=== PATIENT | female | born 1960 | race Hispanic/Latino ===

== ENCOUNTER 2022-03-05 01:31 | Inpatient (IN) | payer OTHER ==
[~2022-03-05] VITALS: Ht 149.9 cm; Wt 38.8 kg
[~2022-03-05 01:31] MED LIST: CYAN-52 PO; FERR324T4 PO; FOLI1 PO; HYDR-3421 PO; PANT40TA PO; RISP0.5T66 PO; RISP1TAB89 PO
[2022-03-05 01:58] LABS: BASOPHILS % (AUTO) 0.6 % (0.0-5.0); EOSINOPHILS % (AUTO) 1.9 % (0.0-8.0); LYMPHOCYTES % (AUTO) 16.6 % (21.0-51.0); MEAN CORPUSCULAR HEMOGLOBIN 26.8 pg (27.0-33.0); MEAN CORPUSCULAR HGB CONC 31.7 g/dL (32.0-36.0); MEAN CORPUSCULAR VOLUME 84.5 fL (79-99); MONOCYTES % (AUTO) 11.7 % (3.0-13.0); NEUTROPHILS % (AUTO) 68.9 % (40.0-77.0); PLATELET COUNT (AUTO) 234 K/uL (130-400); RED BLOOD CELL COUNT(AUTO) 2.84 MIL/uL (4.00-5.50); RED CELL DISTRIBUTION WIDTH 16.9 % (11.0-15.5); WHITE BLOOD COUNT (AUTO) 7.2 K/uL (4.8-10.8)
[2022-03-05] MEDS ORDERED: ONDANSETRON 4MG INJ IVP ONE (02:00)
[2022-03-05] MEDS ORDERED: 0.9%NACL 1000ML 1,000 ML IV ONE (02:00)
[2022-03-05 02:10] LABS: CREATININE 1.3 mg/dL (0.5-1.5); POTASSIUM 3.8 mmol/L (3.5-5.1)
[2022-03-05 02:15] LABS: ALBUMIN 2.8 g/dL (3.5-5.0); TOTAL PROTEIN, SERUM 6.9 g/dL (6.0-8.3)
[2022-03-05 03:20] LABS: BASOPHILS % (AUTO) 0.7 % (0.0-5.0); EOSINOPHILS % (AUTO) 2.3 % (0.0-8.0); HEMATOCRIT 24.1 % (36-48); LYMPHOCYTES % (AUTO) 17.1 % (21.0-51.0); MEAN CORPUSCULAR HEMOGLOBIN 26.4 pg (27.0-33.0); MEAN CORPUSCULAR HGB CONC 31.1 g/dL (32.0-36.0); MEAN CORPUSCULAR VOLUME 84.9 fL (79-99); MONOCYTES % (AUTO) 12.1 % (3.0-13.0); NEUTROPHILS % (AUTO) 67.4 % (40.0-77.0); PLATELET COUNT (AUTO) 210 K/uL (130-400); RED BLOOD CELL COUNT(AUTO) 2.84 MIL/uL (4.00-5.50); RED CELL DISTRIBUTION WIDTH 16.9 % (11.0-15.5); WHITE BLOOD COUNT (AUTO) 6.9 K/uL (4.8-10.8)
[2022-03-05 03:25] LABS: CARBON DIOXIDE 33 mmol/L (21-32); CHLORIDE 103 mmol/L (101-111); CREATININE 1.2 mg/dL (0.5-1.5); GLOMERULAR FILTR. RATE CALC 48 mL/min (>60); GLUCOSE,RANDOM 98 mg/dL (70-105); POTASSIUM 3.9 mmol/L (3.5-5.1); SODIUM SERUM 142 mmol/L (136-145); UREA NITROGEN, BLOOD 23 mg/dL (7-18)
[2022-03-05 03:30] LABS: ALANINE AMINOTRANSFERASE 12 U/L (12-78); ALBUMIN 2.9 g/dL (3.5-5.0); ALCOHOL, BLOOD < 3 mg/dL (0-10); AMMONIA 13 umol/L (11-32); ASPARTATE AMINOTRANSFERASE 19 U/L (10-37); TOTAL PROTEIN, SERUM 7.1 g/dL (6.0-8.3)
[2022-03-05 04:01] LABS: APPEARANCE,URINE CLEAR (CLEAR); BILIRUBIN,URINE NEGATIVE (NEGATIVE); COLOR,URINE YELLOW (YELLOW); GLUCOSE, URINE (UA) NEGATIVE (NEGATIVE); KETONES,URINE NEGATIVE (NEGATIVE); LEUKOCYTE ESTERASE ,URINE NEGATIVE Leu/uL (NEGATIVE); NITRATE,URINE NEGATIVE (NEGATIVE); OCCULT BLOOD,URINE NEGATIVE (NEGATIVE); PH,URINE 5.5 (5.0-8.0); PROTEIN,URINE 30 mg/dL (NEGATIVE); UROBILINOGEN,URINE 0.2 mg/dL (0.2-1.0)
[2022-03-05 04:07] LABS: MUCUS,URINE RARE LPF (None Seen); SQUAMOUS EPITHELIAL CELL,UR RARE /HPF (0-2)
[2022-03-05] MEDS ORDERED: LIDOCAINE HCL-MPF 1% 2ML VIAL IV PRN (05:30)
[2022-03-05] MEDS ORDERED: DiphenhydrAMINE HCL 50 MG/ML VIAL IV PRN (05:30)
[2022-03-05] MEDS ORDERED: POTASSIUM CHLORIDE 20MEQ/100ML 100 ML IV PRN (05:30)
[2022-03-05] MEDS ORDERED: ACETAMINOPHEN 325 MG TAB PO PRN (05:30)
[2022-03-05] MEDS ORDERED: MAGNESIUM 2GM PREMIX 50ML 50 ML IV PRN (05:30)
[2022-03-05] MEDS ORDERED: KCL 20 MEQ ERTAB PO PRN (05:30)
[2022-03-05] MEDS: LACTATED RINGERS 1000ML 1,000 ML IV SCH ×2 (06:20→21:04)
[2022-03-05 06:23] LABS: BARBITURATE SCREEN, URINE NEGATIVE (NEGATIVE)
[2022-03-05 06:24] LABS: AMPHET/METH SCREEN,URINE NEGATIVE (NEGATIVE); BENZODIAZEPINES SCREEN,URINE NEGATIVE (NEGATIVE); CANNABINOID SCREEN,URINE NEGATIVE (NEGATIVE); COCAINE SCREEN,URINE NEGATIVE (NEGATIVE); PHENCYCLIDINE SCREEN,URINE NEGATIVE (NEGATIVE)
[2022-03-05 08:41] LABS: HEMOGLOBIN A1C 6.2 % (4.0-6.0)
[2022-03-05] MEDS: FERROUS SULFATE 325 MG TABLET.DR PO SCH (08:41)
[2022-03-05] MEDS: CALCIUM CARB 500MG PO SCH ×2 (08:41→20:48)
[2022-03-05] MEDS: FAMOTIDINE 20MG TAB PO SCH (08:41)
[2022-03-05] MEDS ORDERED: HEPARIN 5,000 UNIT VIAL SQ SCH (09:00)
[2022-03-05 09:14] LABS: CRP QUANTITATIVE 5.4 mg/L (0.00-9.0); THYROID STIMULATING HORMONE 1.32 uIU/mL (0.36-3.74)
[2022-03-05 09:30] VITALS: BP 138/74
[2022-03-05] MEDS ORDERED: THIAMINE HCL 100 MG/ML 2ML VIAL IVP SCH (10:30)
[2022-03-05] MEDS ORDERED: FOLIC ACID 5 MG/ML VIAL IV SCH (10:30)
[2022-03-05] MEDS: ONDANSETRON 4MG INJ IV PRN (11:50)
[2022-03-05 12:00] VITALS: BP 135/76
[2022-03-05 16:00] VITALS: BP 124/82
[2022-03-05] MEDS ORDERED: BISACODYL 10 MG SUPP.RECT RC PRN (16:30)
[2022-03-05] MEDS: POLYETHYLENE GLYCOL 3350 17 GM POWD.PACK PO ONE ×2 (17:49→18:28)
[2022-03-05 19:00] VITALS: BP 122/76
[2022-03-05] MEDS: DOCUSATE SODIUM 100 MG CAP PO SCH (20:48)
[2022-03-06] VITALS: BP 128/85
[2022-03-06 04:00] VITALS: BP 148/70
[2022-03-06 04:17] LABS: BASOPHILS % (AUTO) 1.2 % (0.0-5.0); EOSINOPHILS % (AUTO) 5.1 % (0.0-8.0); HEMATOCRIT 25.2 % (36-48); LYMPHOCYTES % (AUTO) 19.4 % (21.0-51.0); MEAN CORPUSCULAR HEMOGLOBIN 26.1 pg (27.0-33.0); MEAN CORPUSCULAR HGB CONC 30.6 g/dL (32.0-36.0); MEAN CORPUSCULAR VOLUME 85.4 fL (79-99); MONOCYTES % (AUTO) 11.9 % (3.0-13.0); NEUTROPHILS % (AUTO) 62.2 % (40.0-77.0); PLATELET COUNT (AUTO) 182 K/uL (130-400); RED BLOOD CELL COUNT(AUTO) 2.95 MIL/uL (4.00-5.50); RED CELL DISTRIBUTION WIDTH 16.4 % (11.0-15.5); WHITE BLOOD COUNT (AUTO) 4.9 K/uL (4.8-10.8)
[2022-03-06 04:44] LABS: CREATININE 0.8 mg/dL (0.5-1.5); MAGNESIUM 1.7 mg/dL (1.80-2.40); PHOSPHORUS 5.2 mg/dL (2.5-4.9); POTASSIUM 3.9 mmol/L (3.5-5.1)
[2022-03-06] MEDS: DOXYCYCLINE HYCLATE 100 MG TABLET PO SCH ×2 (05:20→17:17)
[2022-03-06] MEDS: CEFTRIAXONE 1G VIAL IVP SCH (05:20)
[2022-03-06] MEDS: 0.9%NACL 1000ML 1,000 ML IV SCH ×2 (05:20→20:20)
[2022-03-06] MEDS ORDERED: MAGNESIUM 2GM PREMIX 50ML 50 ML IV PRN (05:30)
[2022-03-06 08:00] VITALS: BP 125/81
[2022-03-06] MEDS: FERROUS SULFATE 325 MG TABLET.DR PO SCH (09:19)
[2022-03-06] MEDS: DOCUSATE SODIUM 100 MG CAP PO SCH ×2 (09:19→20:19)
[2022-03-06] MEDS: FAMOTIDINE 20MG TAB PO SCH (09:19)
[2022-03-06] MEDS: CALCIUM CARB 500MG PO SCH ×2 (09:19→20:19)
[2022-03-06] MEDS: ONDANSETRON 4MG INJ IV PRN (10:09)
[2022-03-06 12:00] VITALS: BP 156/79
[2022-03-06 16:00] VITALS: BP 148/96
[2022-03-06] MEDS ORDERED: LACTULOSE 20 GM/30 ML UDCUP PO PRN (18:00)
[2022-03-06] MEDS ORDERED: SODIUM CHLORIDE 3% FOR INHALATION 4 ML/AMP VIAL.NEB IH ONE ×2 (18:28→23:23)
[2022-03-06 20:05] VITALS: BP 129/77
[2022-03-07] VITALS: BP 132/78
[2022-03-07 04:17] VITALS: BP 147/84
[2022-03-07] MEDS: DOXYCYCLINE HYCLATE 100 MG TABLET PO SCH ×2 (04:38→16:42)
[2022-03-07] MEDS: CEFTRIAXONE 1G VIAL IVP SCH (04:38)
[2022-03-07] MEDS: 0.9%NACL 1000ML 1,000 ML IV SCH (04:38)
[2022-03-07 06:01] LABS: BASOPHILS % (AUTO) 0.8 % (0.0-5.0); HEMATOCRIT 28.6 % (36-48); LYMPHOCYTES % (AUTO) 18.9 % (21.0-51.0); MEAN CORPUSCULAR HEMOGLOBIN 26.3 pg (27.0-33.0); MEAN CORPUSCULAR HGB CONC 30.8 g/dL (32.0-36.0); MEAN CORPUSCULAR VOLUME 85.4 fL (79-99); MONOCYTES % (AUTO) 9.1 % (3.0-13.0); PLATELET COUNT (AUTO) 240 K/uL (130-400); RED BLOOD CELL COUNT(AUTO) 3.35 MIL/uL (4.00-5.50); RED CELL DISTRIBUTION WIDTH 16.5 % (11.0-15.5); WHITE BLOOD COUNT (AUTO) 4.8 K/uL (4.8-10.8)
[2022-03-07] MEDS ORDERED: SODIUM CHLORIDE 3% FOR INHALATION 4 ML/AMP VIAL.NEB IH ONE (06:14)
[2022-03-07 06:24] LABS: ALBUMIN 2.6 g/dL (3.5-5.0); CREATININE 0.8 mg/dL (0.5-1.5); TOTAL PROTEIN, SERUM 6.6 g/dL (6.0-8.3)
[2022-03-07] MEDS ORDERED: ASPIRIN 325MG TAB PO SCH (07:24)
[2022-03-07 08:00] VITALS: BP 164/93
[2022-03-07] MEDS: FAMOTIDINE 20MG TAB PO SCH (10:15)
[2022-03-07] MEDS: CALCIUM CARB 500MG PO SCH ×2 (10:16→19:51)
[2022-03-07] MEDS: DOCUSATE SODIUM 100 MG CAP PO SCH ×2 (10:16→19:51)
[2022-03-07] MEDS: CYANOCOBALAMIN (VITAMIN B-12) 1,000 MCG TABLET PO SCH (10:16)
[2022-03-07] MEDS: HYDROXYZINE 25 MG TABLET PO SCH ×2 (10:16→19:51)
[2022-03-07] MEDS: FERROUS SULFATE 325 MG TABLET.DR PO SCH (10:16)
[2022-03-07] MEDS: RISPERIDONE 0.5 MG TABLET PO SCH (10:16)
[2022-03-07] MEDS: FOLIC ACID 1 MG TABLET PO SCH (10:17)
[2022-03-07 12:00] VITALS: BP 150/76
[2022-03-07 16:00] VITALS: BP 165/103
[2022-03-07] MEDS: ONDANSETRON 4MG INJ IV PRN (19:43)
[2022-03-07] MEDS: RISPERIDONE 1 MG TABLET PO SCH (19:51)
[2022-03-07 20:13] VITALS: BP 133/77
[2022-03-08] MEDS: CEFTRIAXONE 1G VIAL IVP SCH (04:21)
[2022-03-08] MEDS: DOXYCYCLINE HYCLATE 100 MG TABLET PO SCH ×2 (04:21→16:41)
[2022-03-08] MEDS: 0.9%NACL 1000ML 1,000 ML IV SCH ×2 (04:21→23:40)
[2022-03-08 04:44] VITALS: BP 147/84
[2022-03-08 05:49] LABS: BASOPHILS % (AUTO) 0.5 % (0.0-5.0); EOSINOPHILS % (AUTO) 4.6 % (0.0-8.0); HEMATOCRIT 25.3 % (36-48); LYMPHOCYTES % (AUTO) 15.3 % (21.0-51.0); MEAN CORPUSCULAR HEMOGLOBIN 26.3 pg (27.0-33.0); MEAN CORPUSCULAR HGB CONC 30.8 g/dL (32.0-36.0); MEAN CORPUSCULAR VOLUME 85.2 fL (79-99); MONOCYTES % (AUTO) 12.2 % (3.0-13.0); PLATELET COUNT (AUTO) 234 K/uL (130-400); RED BLOOD CELL COUNT(AUTO) 2.97 MIL/uL (4.00-5.50); RED CELL DISTRIBUTION WIDTH 16.6 % (11.0-15.5); WHITE BLOOD COUNT (AUTO) 5.5 K/uL (4.8-10.8)
[2022-03-08 06:12] LABS: CREATININE 0.9 mg/dL (0.5-1.5); MAGNESIUM 1.8 mg/dL (1.80-2.40); PHOSPHORUS 5.6 mg/dL (2.5-4.9); POTASSIUM 3.6 mmol/L (3.5-5.1)
[2022-03-08 08:00] VITALS: BP 113/61
[2022-03-08] MEDS: CALCIUM CARB 500MG PO SCH ×2 (08:45→22:46)
[2022-03-08] MEDS: HYDROXYZINE 25 MG TABLET PO SCH ×2 (08:45→22:47)
[2022-03-08] MEDS: FERROUS SULFATE 325 MG TABLET.DR PO SCH (08:45)
[2022-03-08] MEDS: FOLIC ACID 1 MG TABLET PO SCH (08:45)
[2022-03-08] MEDS: DOCUSATE SODIUM 100 MG CAP PO SCH ×2 (08:45→22:47)
[2022-03-08] MEDS: RISPERIDONE 0.5 MG TABLET PO SCH (08:46)
[2022-03-08] MEDS: OLANZAPINE 5 MG TAB PO SCH (08:46)
[2022-03-08] MEDS: FAMOTIDINE 20MG TAB PO SCH (08:46)
[2022-03-08] MEDS: CYANOCOBALAMIN (VITAMIN B-12) 1,000 MCG TABLET PO SCH (08:46)
[2022-03-08 16:00] VITALS: BP_SYST 113; BP_SYST 157; BP_DIAS 110; BP_DIAS 70
[2022-03-08 20:41] VITALS: BP 138/89
[2022-03-08] MEDS: RISPERIDONE 1 MG TABLET PO SCH (22:47)
[2022-03-08 23:45] VITALS: BP 136/88
[2022-03-09 04:19] LABS: BASOPHILS % (AUTO) 0.4 % (0.0-5.0); EOSINOPHILS % (AUTO) 4.1 % (0.0-8.0); HEMATOCRIT 24.9 % (36-48); LYMPHOCYTES % (AUTO) 20.5 % (21.0-51.0); MEAN CORPUSCULAR HEMOGLOBIN 26.1 pg (27.0-33.0); MEAN CORPUSCULAR HGB CONC 30.9 g/dL (32.0-36.0); MEAN CORPUSCULAR VOLUME 84.4 fL (79-99); MONOCYTES % (AUTO) 11.4 % (3.0-13.0); NEUTROPHILS % (AUTO) 63.4 % (40.0-77.0); PLATELET COUNT (AUTO) 198 K/uL (130-400); RED BLOOD CELL COUNT(AUTO) 2.95 MIL/uL (4.00-5.50); RED CELL DISTRIBUTION WIDTH 16.7 % (11.0-15.5); WHITE BLOOD COUNT (AUTO) 4.9 K/uL (4.8-10.8)
[2022-03-09 04:38] LABS: CREATININE 0.8 mg/dL (0.5-1.5); POTASSIUM 3.7 mmol/L (3.5-5.1)
[2022-03-09] MEDS: DOXYCYCLINE HYCLATE 100 MG TABLET PO SCH ×2 (05:00→16:49)
[2022-03-09] MEDS: CEFTRIAXONE 1G VIAL IVP SCH (05:00)
[2022-03-09 05:43] VITALS: BP 132/81
[2022-03-09 07:05] VITALS: BP 121/90
[2022-03-09] MEDS: OLANZAPINE 5 MG TAB PO SCH ×3 (09:00→21:17)
[2022-03-09] MEDS: HYDROXYZINE 25 MG TABLET PO SCH ×2 (09:00→21:18)
[2022-03-09] MEDS: CALCIUM CARB 500MG PO SCH ×2 (09:00→21:17)
[2022-03-09] MEDS: FOLIC ACID 1 MG TABLET PO SCH (09:00)
[2022-03-09] MEDS: RISPERIDONE 0.5 MG TABLET PO SCH (09:00)
[2022-03-09] MEDS: DOCUSATE SODIUM 100 MG CAP PO SCH ×2 (09:00→21:19)
[2022-03-09] MEDS: FAMOTIDINE 20MG TAB PO SCH (09:00)
[2022-03-09] MEDS: FERROUS SULFATE 325 MG TABLET.DR PO SCH (09:00)
[2022-03-09] MEDS: CYANOCOBALAMIN (VITAMIN B-12) 1,000 MCG TABLET PO SCH (09:00)
[2022-03-09 11:05] VITALS: BP 138/75
[2022-03-09] MEDS: 0.9%NACL 1000ML 1,000 ML IV SCH (16:20)
[2022-03-09 20:49] VITALS: BP 123/79
[2022-03-09] MEDS: CLONAZEPAM 1MG TAB PO SCH (21:17)
[2022-03-09] MEDS: RISPERIDONE 1 MG TABLET PO SCH (21:17)
[2022-03-10 00:06] VITALS: BP 128/71
[2022-03-10] MEDS: CEFTRIAXONE 1G VIAL IVP SCH (04:31)
[2022-03-10] MEDS: DOXYCYCLINE HYCLATE 100 MG TABLET PO SCH ×2 (04:31→17:00)
[2022-03-10 04:36] VITALS: BP 122/76
[2022-03-10 07:05] VITALS: BP 121/72
[2022-03-10] MEDS: CALCIUM CARB 500MG PO SCH ×2 (09:00→21:00)
[2022-03-10] MEDS: RISPERIDONE 0.5 MG TABLET PO SCH (09:00)
[2022-03-10] MEDS: OLANZAPINE 5 MG TAB PO SCH ×3 (09:00→22:22)
[2022-03-10] MEDS: FERROUS SULFATE 325 MG TABLET.DR PO SCH (09:00)
[2022-03-10] MEDS: CYANOCOBALAMIN (VITAMIN B-12) 1,000 MCG TABLET PO SCH (09:00)
[2022-03-10] MEDS: CLONAZEPAM 1MG TAB PO SCH ×3 (09:00→21:00)
[2022-03-10] MEDS: FAMOTIDINE 20MG TAB PO SCH (09:00)
[2022-03-10] MEDS: 0.9%NACL 1000ML 1,000 ML IV SCH (09:00)
[2022-03-10] MEDS: FOLIC ACID 1 MG TABLET PO SCH (09:00)
[2022-03-10] MEDS: DOCUSATE SODIUM 100 MG CAP PO SCH ×2 (09:00→22:22)
[2022-03-10] MEDS: HYDROXYZINE 25 MG TABLET PO SCH ×2 (09:00→21:00)
[2022-03-10 09:49] LABS: BASOPHILS % (AUTO) 0.5 % (0.0-5.0); EOSINOPHILS % (AUTO) 1.9 % (0.0-8.0); LYMPHOCYTES % (AUTO) 8.9 % (21.0-51.0); MEAN CORPUSCULAR HGB CONC 30.7 g/dL (32.0-36.0); MEAN CORPUSCULAR VOLUME 84.6 fL (79-99); MONOCYTES % (AUTO) 6.8 % (3.0-13.0); NEUTROPHILS % (AUTO) 81.7 % (40.0-77.0); PLATELET COUNT (AUTO) 199 K/uL (130-400); RED BLOOD CELL COUNT(AUTO) 3.19 MIL/uL (4.00-5.50); RED CELL DISTRIBUTION WIDTH 16.8 % (11.0-15.5); WHITE BLOOD COUNT (AUTO) 5.9 K/uL (4.8-10.8)
[2022-03-10 10:01] LABS: CREATININE 0.9 mg/dL (0.5-1.5); POTASSIUM 3.3 mmol/L (3.5-5.1)
[2022-03-10 11:05] VITALS: BP 139/71
[2022-03-10 15:00] VITALS: BP 130/82
[2022-03-10 20:20] VITALS: BP 116/80
[2022-03-10] MEDS ORDERED: OLANZAPINE ODT 5 MG TAB SL SCH (21:00)
[2022-03-10] MEDS: RISPERIDONE 1 MG TABLET PO SCH (22:22)
[2022-03-11] VITALS (8 sets, daily range): BP systolic 112–148; BP diastolic 73–94
[2022-03-11] MEDS: 0.9%NACL 1000ML 1,000 ML IV SCH ×2 (01:40→22:08)
[2022-03-11] MEDS: DOXYCYCLINE HYCLATE 100 MG TABLET PO SCH ×2 (04:47→16:28)
[2022-03-11] MEDS: CEFTRIAXONE 1G VIAL IVP SCH (04:47)
[2022-03-11] MEDS: RISPERIDONE 0.5 MG TABLET PO SCH (09:00)
[2022-03-11] MEDS: OLANZAPINE 5 MG TAB PO SCH ×2 (09:00→14:00)
[2022-03-11] MEDS: CYANOCOBALAMIN (VITAMIN B-12) 1,000 MCG TABLET PO SCH (09:20)
[2022-03-11] MEDS: CALCIUM CARB 500MG PO SCH ×2 (09:20→21:00)
[2022-03-11] MEDS: HYDROXYZINE 25 MG TABLET PO SCH ×2 (09:20→21:00)
[2022-03-11] MEDS: FOLIC ACID 1 MG TABLET PO SCH (09:20)
[2022-03-11] MEDS: FAMOTIDINE 20MG TAB PO SCH (09:20)
[2022-03-11] MEDS: FERROUS SULFATE 325 MG TABLET.DR PO SCH (09:20)
[2022-03-11] MEDS: DOCUSATE SODIUM 100 MG CAP PO SCH ×2 (09:20→21:00)
[2022-03-11] MEDS: POTASSIUM CHLORIDE 10% ELIXIR 20 MEQ/15 ML UDCUP PO PRN ×2 (16:29→17:22)
[2022-03-11] MEDS: CLONAZEPAM 1MG TAB PO SCH (21:00)
[2022-03-11] MEDS: RISPERIDONE 1 MG TABLET PO SCH (21:00)
[2022-03-12 03:53] VITALS: BP 144/77
[2022-03-12] MEDS: CEFTRIAXONE 1G VIAL IVP SCH (04:52)
[2022-03-12] MEDS: DOXYCYCLINE HYCLATE 100 MG TABLET PO SCH ×2 (04:52→16:22)
[2022-03-12 08:39] VITALS: BP 169/83
[2022-03-12] MEDS: FOLIC ACID 1 MG TABLET PO SCH (09:00)
[2022-03-12] MEDS: FERROUS SULFATE 325 MG TABLET.DR PO SCH (09:00)
[2022-03-12] MEDS: DOCUSATE SODIUM 100 MG CAP PO SCH ×2 (09:00→20:09)
[2022-03-12] MEDS: CYANOCOBALAMIN (VITAMIN B-12) 1,000 MCG TABLET PO SCH (09:00)
[2022-03-12] MEDS: CALCIUM CARB 500MG PO SCH ×2 (09:00→20:07)
[2022-03-12] MEDS: FAMOTIDINE 20MG TAB PO SCH (09:18)
[2022-03-12] MEDS: HYDROXYZINE 25 MG TABLET PO SCH ×2 (09:18→20:09)
[2022-03-12] MEDS: RISPERIDONE 0.5 MG TABLET PO SCH (09:18)
[2022-03-12] MEDS: 0.9%NACL 1000ML 1,000 ML IV SCH (11:00)
[2022-03-12 12:12] VITALS: BP 146/96
[2022-03-12 17:31] VITALS: BP 120/80
[2022-03-12] MEDS: CLONAZEPAM 1MG TAB PO SCH (20:09)
[2022-03-12] MEDS: RISPERIDONE 1 MG TABLET PO SCH (20:09)
[2022-03-12 20:32] VITALS: BP 151/99
[2022-03-12 23:52] VITALS: BP 114/66
[2022-03-13] MEDS: 0.9%NACL 1000ML 1,000 ML IV SCH ×2 (03:40→20:20)
[2022-03-13 04:21] VITALS: BP 110/74
[2022-03-13] MEDS: DOXYCYCLINE HYCLATE 100 MG TABLET PO SCH ×3 (05:00→21:25)
[2022-03-13] MEDS: CEFTRIAXONE 1G VIAL IVP SCH ×2 (05:00→21:24)
[2022-03-13] MEDS: CALCIUM CARB 500MG PO SCH ×2 (09:00→21:00)
[2022-03-13 09:27] VITALS: BP 114/78
[2022-03-13] MEDS: FERROUS SULFATE 325 MG TABLET.DR PO SCH (09:46)
[2022-03-13] MEDS: DOCUSATE SODIUM 100 MG CAP PO SCH ×2 (09:46→21:00)
[2022-03-13] MEDS: FAMOTIDINE 20MG TAB PO SCH (09:46)
[2022-03-13] MEDS: RISPERIDONE 0.5 MG TABLET PO SCH (09:46)
[2022-03-13] MEDS: FOLIC ACID 1 MG TABLET PO SCH (09:46)
[2022-03-13] MEDS: HYDROXYZINE 25 MG TABLET PO SCH ×2 (09:46→21:00)
[2022-03-13] MEDS: LISINOPRIL 20 MG TABLET PO SCH (09:46)
[2022-03-13] MEDS: CYANOCOBALAMIN (VITAMIN B-12) 1,000 MCG TABLET PO SCH (09:46)
[2022-03-13 12:19] VITALS: BP 104/69
[2022-03-13 16:00] VITALS: BP 104/71
[2022-03-13 20:34] VITALS: BP 111/83
[2022-03-13] MEDS: RISPERIDONE 1 MG TABLET PO SCH (21:00)
[2022-03-13] MEDS: CLONAZEPAM 1MG TAB PO SCH (21:00)
[2022-03-14 04:41] VITALS: BP 156/83
[2022-03-14 07:45] VITALS: BP 133/78
[2022-03-14] MEDS: CYANOCOBALAMIN (VITAMIN B-12) 1,000 MCG TABLET PO SCH (09:00)
[2022-03-14] MEDS: FAMOTIDINE 20MG TAB PO SCH (09:00)
[2022-03-14] MEDS: LISINOPRIL 20 MG TABLET PO SCH (09:00)
[2022-03-14] MEDS: DOCUSATE SODIUM 100 MG CAP PO SCH (09:00)
[2022-03-14] MEDS: RISPERIDONE 0.5 MG TABLET PO SCH (09:00)
[2022-03-14] MEDS: CALCIUM CARB 500MG PO SCH (09:00)
[2022-03-14] MEDS: HYDROXYZINE 25 MG TABLET PO SCH (09:00)
[2022-03-14] MEDS: FOLIC ACID 1 MG TABLET PO SCH (09:00)
[2022-03-14] MEDS: FERROUS SULFATE 325 MG TABLET.DR PO SCH (09:00)
[2022-03-14] MEDS ORDERED: 0.9%NACL 1000ML 1,000 ML IV SCH (10:00)
[2022-03-14] MEDS ORDERED: IRON SUCROSE COMPLEX 500 MG in 0.9% NACL 250ML 250 ML IV SCH (10:00)
[2022-03-14] MEDS ORDERED: FOLIC ACID 5 MG/ML VIAL IV SCH (10:30)
[2022-03-14] MEDS ORDERED: CYANOCOBALAMIN (VITAMIN B-12) 1000 MCG/ML 1ML VIAL IM SCH (10:30)
[2022-03-14 13:35] LABS: HEMATOCRIT 25.4 % (36-48); MEAN CORPUSCULAR HEMOGLOBIN 26.2 pg (27.0-33.0); MEAN CORPUSCULAR HGB CONC 31.1 g/dL (32.0-36.0); MEAN CORPUSCULAR VOLUME 84.1 fL (79-99); PLATELET COUNT (AUTO) 198 K/uL (130-400); RED BLOOD CELL COUNT(AUTO) 3.02 MIL/uL (4.00-5.50); RED CELL DISTRIBUTION WIDTH 17.3 % (11.0-15.5); WHITE BLOOD COUNT (AUTO) 5.7 K/uL (4.8-10.8)
[2022-03-14 13:50] LABS: ALBUMIN 2.8 g/dL (3.5-5.0); CREATININE 0.9 mg/dL (0.5-1.5); POTASSIUM 3.6 mmol/L (3.5-5.1); TOTAL PROTEIN, SERUM 6.8 g/dL (6.0-8.3)
[2022-03-14 15:17] LABS: BAND NEUTROPHILS % (MANUAL) 2 % (0-2); EOSINOPHILS % (MANUAL) 1 % (1-6); LYMPHOCYTES % (MANUAL) 13 % (22-44); MAN.DIFF COMMENT-IMPRESSION MANUAL DIFFERENTIAL; MONOCYTES % (MANUAL) 4 % (2-9); REACTIVE LYMPHOCYTES 2 % (0-0); SEGMENTED NEUTROPHILS % 78 % (40-70)
[2022-03-14 15:18] LABS: PLATELET MORPHOLOGY COMMENT LARGE PLTS PRESENT
== END 2022-03-14 18:19 | disposition short-term general hospital (02) | DRG 682 ==
LOC: EDH 01:31 → EDHIP 05:20 → 4CH 09:54 → 4AH 03-06 20:26 → 4DH 03-11 14:13 → 4AH 03-11 14:14
PROVIDERS: ADMIT Internal Medicine; ATTEND Internal Medicine
DX: N17.9 Acute kidney failure, unspecified (principal); E43 Unspecified severe protein-calorie malnutrition; Z68.1 Body mass index [BMI] 19.9 or less, adult; Z20.822 Contact with and (suspected) exposure to COVID-19; E86.0 Dehydration; R62.7 Adult failure to thrive; D64.9 Anemia, unspecified; F20.9 Schizophrenia, unspecified; K59.00 Constipation, unspecified; E83.39 Other disorders of phosphorus metabolism; E83.51 Hypocalcemia; E88.09 Other disorders of plasma-protein metabolism, not elsewhere classified; Z91.19 Patient's noncompliance with other medical treatment and regimen
CPT/HCPCS: 36415; 70450; 71045; 74176; 80048; 80053; 80305; 81001; 82140; 82270; 82306; 82330; 82550; 82607; 82728; 82746; 82948; 83036; 83540; 83550; 83605; 83735; 84100; 84145; 84443; 84484; 85025; 85651; 86140; 87635; 87804; 92610; 93005; G0378; J0696; J1644; J1756; J2405; J3411; J3420; J3475; J3490; J7030; J7050